=== PATIENT | female | born 1955 | race American Indian/Alaskan Native ===

== ENCOUNTER 2017-09-23 08:24 | Outpatient (CLI) | payer BC ==
--- NOTE | 2017-09-23 13:04 | Ultrasound Report ---
BILATERAL DIGITAL DIAGNOSTIC MAMMOGRAM with CAD and LEFT BREAST ULTRASOUND: 09/23/17 CLINICAL: Left palpable breast mass. Status post left ultrasound guided needle biopsy 05/23/11. 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 Complete excision was recommended at the time. She had a surgical excision done elsewhere and I do not have those records. However, the patient says that the surgeon recommended reexcision after the initial excision but she declined reexcision. She has not seen a physician for followup for the last 4 years. COMPARISON:05/07/11 mammogram and left breast ultrasound. FINDINGS: The breasts are heterogeneously dense. An irregular upper left breast mass measures approximately 4.6 x 3.2 cm at 12 o'clock approximately 7 cm from the nipple. The location of the mass correlates with the previous biopsy site but the previous biopsy clip has been surgically excised.An additional circumscribed relatively smooth mass more anterior at 12 o'clock measures 4.3 x 2.8 x 3.3 cm. An oval circumscribed upper-outer mass approximately 7-8 cm from the nipple measures 2.5 x 1.8 cm. An oval circumscribed lower inner mass measures 1.2 x 1.1 x 1.2 cm. Moderate skin thickening of the inferior left breast and a surgical defect in the outer breast as apparent on the CC projection. The right breast is negative. Ultrasound of the left breast (including all four quadrants and the retroareolar area) was performed and demonstrated multiple solid masses. The dominant mass is at 12 o'clock 6 cm from the nipple and measures 5.1 x 4.1 x 3.5 cm. It is heterogeneously hypoechoic and is contiguous to the skin. An oval irregular solid hypoechoic mass at 1 o'clock 7 cm from the nipple measures 1.3 x 1.0 x 1.0 cm. A solid hypoechoic irregular mass at 1 o'clock 2 cm from the nipple measures 1.5 x 0.6 x 0.4 cm. An irregular solid hypoechoic mass at 2 o'clock 7 cm from the nipple measures 2.7 x 1.2 x 2.8 cm and a solid irregular hypoechoic mass at 2 o'clock 5 cm from the nipple measures 2.0 x 0.8 x 2.0 cm. A solid oval hypoechoic mass at 9 o'clock 5 cm from the nipple measures 1.1 x 1.1 x 1.3 cm. A solid mass at 3 o'clock 5 cm from the nipple measures 1.0 x 0.6 x 1.2 cm and a solid mass at 6 o'clock 7 cm from the nipple measures 1.2 x 1.0 x 0.9 cm. Ultrasound of the left axilla demonstrates three small lymph nodes with central fat and mildly thickened cortex measuring approximately 5 mm maximum. one IMPRESSION: 1. Multiple highly suspicious left breast masses with a dominant 5.1 cm mass at 12 o'clock 6 cm from the nipple. 2. Suspicious left axillary lymph nodes. 3. Negative right breast. BI-RADS CATEGORY: 5 - - Highly Suggestive of Malignancy RECOMMENDATION: Ultrasound guided needle core biopsy of the dominant left breast mass at 12 o'clock and ultrasound guided needle biopsy of a suspicious left axillary lymph node. I discussed the findings and the recommendation for needle biopsies of the left breast and left axillary lymph node with the patient at the time of the examination. ACR BI-RADS MAMMOGRAPHIC CODES: 0 = Needs additional imaging evaluation; 1 = Negative; 2 = Benign; 3 = Probably benign; 4 = Suspicious; 5 = Malignant; 6 = Known biopsy-proven malignancy COMMENT: 1. Dense breast tissue, i.e., adenosis, fibrocystic changes, etc., may obscure an underlying neoplasm. 2. Approximately 10% of cancers are not detected with mammography. 3. A negative mammography report should not delay biopsy if a clinically suspicious mass is present. COMMENT: Patient follow-up letters are generated by our [facility] application.
== END 2017-09-23 08:25 | disposition home or self-care (01) ==
LOC: SPVWC 08:24
PROVIDERS: ATTEND Internal Medicine
DX: N63.20 Unspecified lump in the left breast, unspecified quadrant (principal)
CPT/HCPCS: 77066

== ENCOUNTER 2017-10-09 08:07 | Outpatient (CLI) | payer BC ==
--- NOTE | 2017-10-09 10:41 | Mammography Report ---
LEFT DIGITAL DIAGNOSTIC MAMMOGRAM: 10/09/17 08:07:00 CLINICAL: For clip placement immediately status post ultrasound biopsy. COMPARISON:09/23/17 FINDINGS: A biopsy clip is now identified within in upper outer mass. IMPRESSION: Concordant clip placement status post ultrasound biopsy. BI-RADS CATEGORY: 5 - - Highly Suggestive of Malignancy Pathology pending.
--- NOTE | 2017-10-09 14:09 | Ultrasound Report ---
ULTRASOUND GUIDED NEEDLE CORE BIOPSY WITH CLIP PLACEMENT LEFT BREAST AND ULTRASOUND GUIDED NEEDLE CORE BIOPSY OF A LEFT AXILLARY LYMPH NODE : 10/09/17 CLINICAL: Left breast masses and suspicious left axillary lymph nodes. COMPARISON :09/23/17 FINDINGS: The procedure was explained to the patient and informed consent was obtained. Ultrasound demonstrated the previously described left breast masses and the suspicious left axillary lymph nodes. The breast was marked with a felt tip marker and a timeout was called. The skin was prepped with Betadine and anesthetized with 1% lidocaine. Ultrasound guided needle core biopsy was performed at 12 o'clock in the area of a large palpable mass through a small dermatotomy using ultrasound guidance, 2% lidocaine with epinephrine for deep anesthesia and a 14 gauge Achieve biopsy device. Imaging demonstrated satisfactory sampling. Multiple cores were obtained and placed in formalin. A localizer clip was deployed within the mass. The skin in the axilla was prepped with Betadine and anesthetized with 1% lidocaine. Ultrasound guided needle core biopsy of a lymph node with suspicious cortical thickening was performed through a small dermatotomy using 2% lidocaine with epinephrine for deep anesthesia and an 18-gauge Achieve biopsy device. Two samples were obtained and placed in formalin. A localizer clip was deployed within the lymph node. Hemostasis was obtained at both sites with minimal pressure and sterile dressings were applied. The patient tolerated the procedure well and there were no apparent complications. She left the department in good condition with instructions for wound care and followup. IMPRESSION: Uncomplicated ultrasound-guided needle core biopsy of a left breast mass and uncomplicated needle core biopsy of a left axillary lymph node.
== END 2017-10-09 08:08 | disposition home or self-care (01) ==
LOC: SPVWC 08:07
PROVIDERS: ATTEND Internal Medicine
DX: C50.912 Malignant neoplasm of unspecified site of left female breast (principal); R92.0 Mammographic microcalcification found on diagnostic imaging of breast; Z17.0 Estrogen receptor positive status [ER+]
CPT/HCPCS: 38505; 76942; 88305; 88341; 88342; 88361